=== PATIENT | male | born 1955 | race Caucasian/White ===

== ENCOUNTER → 2018-02-28 | Outpatient (CLI) | payer BC ==
[~2018-02-28] MED LIST: HYDR-3240 PO; OMNIPAQUE 350 MG/ML, 150 ML BOTTLE ONE; ONDA4TAB10 PO
== END | disposition home or self-care (01) ==
LOC: RAD 12:54
PROVIDERS: ATTEND Physician Assistant
DX: N20.0 Calculus of kidney (principal); N28.1 Cyst of kidney, acquired; K40.90 Unilateral inguinal hernia, without obstruction or gangrene, not specified as recurrent
CPT/HCPCS: 74178; Q9967